=== PATIENT | female | born 1940 | race Caucasian/White ===

== ENCOUNTER 2021-06-05 19:08 | Observation (INO) | payer MEDICARE, BC ==
[2021-06-05] MEDS ORDERED: Sodium Chloride 0.9% 2.5 ML Syringe FLUSH PRN (19:15)
[2021-06-05] MEDS ORDERED: Sodium Chloride 0.9% 10 ML Syringe FLUSH PRN (19:15)
--- NOTE | 2021-06-05 19:23 | EDM.PDOC ---
ED HPI GENERAL MEDICAL PROBLEM - General Chief Complaint: General Stated Complaint: FALL YESTERDAY Time Seen by Provider: 06/05/21 19:14 - History of Present Illness INITIAL COMMENTS - FREE TEXT/NARRATIVE: 80-year-old female with a history of hypertension which she intermittently takes medication for depending on what her blood pressure is and possible history of CHF she is unsure sounds like a prior history of GA as well is presenting with generalized weakness and a fall. Patient states that she went shopping 5 days ago. She was very tired after that and so is been essentially laying in bed for the last 4 days. She states that 10 years ago she had a internet e commerce specialist tell her that "when I am tired I should just go to bed." She has been occasionally up to the bathroom but is otherwise been bedbound for the last 4 days. Approximately 24 hours ago she fell forward while trying to move from her bed to the bathroom. She was then too weak to get up. She did strike her head but she did not lose consciousness. She crawled into the living room but was unable to get up onto the futon so slipped on the floor. Today she called EMS who brought her into the ER. She denies headache or neck pain she denies chest pain or shortness of breath either now or within the last 4 days. No fevers or chills no myalgias some nausea and dry heaves but no vomiting patient states that she has not had anything to eat or drink for the last few days. She denies dysuria or hematuria. Her generalized weakness is constant gradually progressive and moderate to severe without alleviating factors radiation or other associated symptoms. - Related Data Allergies Allergy/AdvReac Type Severity Reaction Status Date / Time Sulfa (Sulfonamide Allergy Rash Verified 06/05/21 19:17 Antibiotics) Home Meds: Home Meds Furosemide [Lasix] 20 mg PO DAILY 06/05/21 [History] Losartan [Cozaar] 50 mg PO DAILY 06/05/21 [History] ED ROS GENERAL - Review of Systems Review Of Systems: See Below Free Text/Narrative/Comment: General: Per HPI Skin: No rash. Eyes: No vision problems. ENT: No sore throat. Neck: No neck stiffness. Respiratory: No shortness of breath. Cardiac: No chest pain. Gastrointestinal: No nausea, vomiting or abdominal pain. Urinary: No dysuria. Musculoskeletal: No myalgias/arthralgias. Neurologic: No headache. ED EXAM, GENERAL - Physical Exam Exam: See Below Free Text/Narrative:: General Appearance: No acute distress, appears comfortable HEENT: Normocephalic, 2 cm by half a centimeter abrasion to the mid forehead no underlying crepitus tenderness or deformity, sclera anicteric, mucous membranes moist Neck: Normal range of motion Chest and Lungs: Bilateral breath sounds, clear to auscultation Cardiovascular: Regular rate and rhythm, no lower extremity edema Abdomen: Soft, non-tender Musculoskeletal: 2+ left radial pulse no focal tenderness swelling or deformity left wrist with left shoulder significant ecchymosis surrounds the left elbow but no clinical joint effusion and range of motion of the joint is full and without pain she does have some focal tenderness at the radial head Neurologic: Awake, alert, no obvious deficits, moving all extremities Psychiatric: Appropriate, cooperative #1 Interpretation EKG Date: 06/05/21 Time: 20:05 EKG Interpretation Comments: Sinus rhythm rate of 88 Q waves anteriorly suggest old infarct no acute ischemia unremarkable intervals Course - Vital Signs Last Recorded V/S: Last Vital Signs Temp 97.5 F 06/05/21 20:43 Pulse 92 06/05/21 20:43 Resp 18 06/05/21 20:43 BP 134/67 06/05/21 20:43 Pulse Ox 97 06/05/21 20:43 - Orders/Labs/Meds Orders: Active Orders 24 hr Category Date Time Status INFLUENZA A+B AG SCREEN [RM] Stat Lab 06/05/21 19:50 Ordered Magnesium Sulfate/Water [Magnesium Sulfate in Water 4 Med 06/05/21 20:30 Active GM/100 ML] 4 gm Premix Bag 1 bag IV ONETIME Sodium Chloride 0.9% [Normal Saline] 1,000 ml Med 06/05/21 20:30 Active IV ASDIRECTED Sodium Chloride 0.9% [Saline Flush] Med 06/05/21 19:15 Active 10 ml FLUSH ASDIRECTED PRN Sodium Chloride 0.9% [Saline Flush] Med 06/05/21 19:15 Active 2.5 ml FLUSH ASDIRECTED PRN Isolation [COMM] Routine Oth 06/05/21 19:16 Active Saline Lock Insert [OM.PC] Stat Oth 06/05/21 19:15 Ordered Medication Orders Magnesium Sulfate 4 gm/ Premix 100 mls @ 50 mls/hr IV ONETIME ONE Stop: 06/05/21 22:29 Last Admin: 06/05/21 20:36 Dose: 50 mls/hr Documented by: NANCY Sodium Chloride (Normal Saline) 1,000 mls @ 999 mls/hr IV ASDIRECTED PIERRE Last Admin: 06/05/21 20:36 Dose: 999 mls/hr Documented by: NANCY Sodium Chloride (Sodium Chloride 0.9% 10 Ml Syringe) 10 ml FLUSH ASDIRECTED PRN PRN Reason: Keep Vein Open Sodium Chloride (Sodium Chloride 0.9% 2.5 Ml Syringe) 2.5 ml FLUSH ASDIRECTED PRN PRN Reason: Keep Vein Open Labs: Laboratory Tests 06/05/21 06/05/21 06/05/21 Range/Units 19:30 19:30 19:30 WBC 7.06 (4.0-11.0) K/uL RBC 3.76 L (4.30-5.90) M/uL Hgb 13.5 (12.0-16.0) g/dL Hct 38.3 (36.0-46.0) % MCV 101.9 H (80.0-98.0) fL MCH 35.9 H (27.0-32.0) pg MCHC 35.2 (31.0-37.0) g/dL RDW Std Deviation 52.9 (28.0-62.0) fl RDW Coeff of Reza 14 (11.0-15.0) % Plt Count 171 (150-400) K/uL MPV 9.50 (7.40-12.00) fL Neut % (Auto) 86.3 H (48.0-80.0) % Lymph % (Auto) 4.0 L (16.0-40.0) % [place] % (Auto) 9.3 (0.0-15.0) % Eos % (Auto) 0.1 (0.0-7.0) % Baso % (Auto) 0.3 (0.0-1.5) % Neut # (Auto) 6.1 H (1.4-5.7) K/uL Lymph # (Auto) 0.3 L (0.6-2.4) K/uL [place] # (Auto) 0.7 (0.0-0.8) K/uL Eos # (Auto) 0.0 (0.0-0.7) K/uL Baso # (Auto) 0.0 (0.0-0.1) K/uL Nucleated RBC % 0.0 /100WBC Nucleated RBCs # 0 K/uL INR Sodium 135 L (136-145) mmol/L Potassium 3.9 (3.5-5.1) mmol/L Chloride 96 L (98-107) mmol/L Carbon Dioxide 26.1 (21.0-32.0) mmol/L BUN 10 (7.0-18.0) mg/dL Creatinine 0.9 (0.6-1.0) mg/dL Est Cr Clr Drug Dosing 43.77 mL/min Estimated GFR (MDRD) > 60.0 ml/min Glucose 132 H (74-106) mg/dL Calcium 8.8 (8.5-10.1) mg/dL Magnesium 1.5 L (1.8-2.4) mg/dL Total Bilirubin 1.3 H (0.2-1.0) mg/dL AST 74 H (15-37) IU/L ALT 43 (14-63) IU/L Alkaline Phosphatase 144 H (46-116) U/L Creatine Kinase 126 (26-308) U/L Troponin I < 0.050 (0.000-0.056) ng/mL B-Natriuretic Peptide (<100) PG/ML Total Protein 7.9 (6.4-8.2) g/dL Albumin 3.4 (3.4-5.0) g/dL Globulin 4.5 H (2.6-4.0) g/dL Albumin/Globulin Ratio 0.8 L (0.9-1.6) TSH, Ultra Sensitive 3.19 (0.36-3.74) uIU/mL Urine Color Urine Appearance Urine pH (5.0-8.0) Ur Specific [place] (1.001-1.035) Urine Protein (NEGATIVE) mg/dL Urine Glucose (UA) (NEGATIVE) mg/dL Urine Ketones (NEGATIVE) mg/dL Urine Occult Blood (NEGATIVE) Urine Nitrite (NEGATIVE) Urine Bilirubin (NEGATIVE) Urine Urobilinogen (<2.0) EU/dL Ur Leukocyte Esterase (NEGATIVE) Urine RBC (0-2/HPF) Urine WBC (0-5/HPF) Ur Epithelial Cells (NONE-FEW) Urine Bacteria (NEGATIVE) Influenza Type A RNA NEGATIVE (NEGATIVE) Influenza Type B RNA NEGATIVE (NEGATIVE) SARS-CoV-2 RNA ([place]) NEGATIVE (NEGATIVE) 06/05/21 06/05/21 06/05/21 Range/Units 19:30 19:30 19:45 WBC (4.0-11.0) K/uL RBC (4.30-5.90) M/uL Hgb (12.0-16.0) g/dL Hct (36.0-46.0) % MCV (80.0-98.0) fL MCH (27.0-32.0) pg MCHC (31.0-37.0) g/dL RDW Std Deviation (28.0-62.0) fl RDW Coeff of Reza (11.0-15.0) % Plt Count (150-400) K/uL MPV (7.40-12.00) fL Neut % (Auto) (48.0-80.0) % Lymph % (Auto) (16.0-40.0) % [place] % (Auto) (0.0-15.0) % Eos % (Auto) (0.0-7.0) % Baso % (Auto) (0.0-1.5) % Neut # (Auto) (1.4-5.7) K/uL Lymph # (Auto) (0.6-2.4) K/uL [place] # (Auto) (0.0-0.8) K/uL Eos # (Auto) (0.0-0.7) K/uL Baso # (Auto) (0.0-0.1) K/uL Nucleated RBC % /100WBC Nucleated RBCs # K/uL INR 1.00 Sodium (136-145) mmol/L Potassium (3.5-5.1) mmol/L Chloride (98-107) mmol/L Carbon Dioxide (21.0-32.0) mmol/L BUN (7.0-18.0) mg/dL Creatinine (0.6-1.0) mg/dL Est Cr Clr Drug Dosing mL/min Estimated GFR (MDRD) ml/min Glucose (74-106) mg/dL Calcium (8.5-10.1) mg/dL Magnesium (1.8-2.4) mg/dL Total Bilirubin (0.2-1.0) mg/dL AST (15-37) IU/L ALT (14-63) IU/L Alkaline Phosphatase (46-116) U/L Creatine Kinase (26-308) U/L Troponin I (0.000-0.056) ng/mL B-Natriuretic Peptide 175 H (<100) PG/ML Total Protein (6.4-8.2) g/dL Albumin (3.4-5.0) g/dL Globulin (2.6-4.0) g/dL Albumin/Globulin Ratio (0.9-1.6) TSH, Ultra Sensitive (0.36-3.74) uIU/mL Urine Color YELLOW Urine Appearance CLEAR Urine pH 7.0 (5.0-8.0) Ur Specific [place] 1.015 (1.001-1.035) Urine Protein NEGATIVE (NEGATIVE) mg/dL Urine Glucose (UA) NEGATIVE (NEGATIVE) mg/dL Urine Ketones 15 H (NEGATIVE) mg/dL Urine Occult Blood TRACE-INTACT H (NEGATIVE) Urine Nitrite NEGATIVE (NEGATIVE) Urine Bilirubin NEGATIVE (NEGATIVE) Urine Urobilinogen 1.0 (<2.0) EU/dL Ur Leukocyte Esterase NEGATIVE (NEGATIVE) Urine RBC 0-2 (0-2/HPF) Urine WBC 0-1 (0-5/HPF) Ur Epithelial Cells OCCASIONAL (NONE-FEW) Urine Bacteria NOT SEEN (NEGATIVE) Influenza Type A RNA (NEGATIVE) Influenza Type B RNA (NEGATIVE) SARS-CoV-2 RNA ([place]) (NEGATIVE) Meds: Medications Generic Name Dose Route Start Last Admin Trade Name Freq PRN Reason Stop Dose Admin Magnesium Sulfate 4 gm/ Premix 100 mls @ 50 mls/hr 06/05/21 20:30 06/05/21 20:36 IV 06/05/21 22:29 50 mls/hr ONETIME ONE Administration Sodium Chloride 1,000 mls @ 999 mls/hr 06/05/21 20:30 06/05/21 20:36 Normal Saline IV 999 mls/hr ASDIRECTED PIERRE Administration Sodium Chloride 10 ml 06/05/21 19:15 Sodium Chloride 0.9% 10 Ml Syringe FLUSH ASDIRECTED PRN Keep Vein Open Sodium Chloride 2.5 ml 06/05/21 19:15 Sodium Chloride 0.9% 2.5 Ml Syringe FLUSH ASDIRECTED PRN Keep Vein Open Departure - Departure Time of Disposition: 20:56 Disposition: Refer to Observation Condition: Fair Clinical Impression: Hypomagnesemia, Hyponatremia, Generalized weakness - Discharge Information *PRESCRIPTION DRUG MONITORING PROGRAM REVIEWED*: Not Applicable *COPY OF PRESCRIPTION DRUG MONITORING REPORT IN PATIENT ADILENE: Not Applicable Forms: ED Department Discharge Sepsis Event Note (ED) - Focused Exam Vital Signs: Vital Signs Temp Pulse Resp BP Pulse Ox 06/05/21 20:43 97.5 F 92 18 134/67 97 06/05/21 19:11 97.2 F 101 H 20 169/109 H 97 - My Orders Last 24 Hours: My Active Orders 06/05/21 19:15 Sodium Chloride 0.9% [Saline Flush] 10 ml FLUSH ASDIRECTED PRN Sodium Chloride 0.9% [Saline Flush] 2.5 ml FLUSH ASDIRECTED PRN Saline Lock Insert [OM.PC] Stat 06/05/21 19:16 Isolation [COMM] Routine 06/05/21 19:50 INFLUENZA A+B AG SCREEN [RM] Stat 06/05/21 20:30 Magnesium Sulfate/Water [Magnesium Sulfate in Water 4 GM/100 ML] 4 gm Premix Bag 1 bag IV ONETIME Sodium Chloride 0.9% [Normal Saline] 1,000 ml IV ASDIRECTED - Assessment/Plan Last 24 Hours: My Active Orders 06/05/21 19:15 Sodium Chloride 0.9% [Saline Flush] 10 ml FLUSH ASDIRECTED PRN Sodium Chloride 0.9% [Saline Flush] 2.5 ml FLUSH ASDIRECTED PRN Saline Lock Insert [OM.PC] Stat 06/05/21 19:16 Isolation [COMM] Routine 06/05/21 19:50 INFLUENZA A+B AG SCREEN [RM] Stat 06/05/21 20:30 Magnesium Sulfate/Water [Magnesium Sulfate in Water 4 GM/100 ML] 4 gm Premix Bag 1 bag IV ONETIME Sodium Chloride 0.9% [Normal Saline] 1,000 ml IV ASDIRECTED Assessment:: 80-year-old female presenting with profound weakness and a fall approximately 24 hours ago. From a traumatic standpoint she does have an abrasion to her forehead. She has no headache she has no change in mental status it does not appear that she is on blood thinners. Patient adamantly refuses head CT and at this point I do not see a reason to force the issue. She has significant ecchymosis to the left elbow no clear focal bony tenderness but x-ray pending. There are no findings of compartment syndrome. From a medical standpoint she has profound generalized weakness and multiple etiologies need to to be considered. Infection to be considered Covid influenza swabs have been ordered urinalysis as well as chest x-ray. Her abdominal exam is benign and she has no findings of meningitis or encephalitis electrolyte derangement is certainly a consideration and CMP is pending. As well as magnesium. Cardiac causes need to be considered as well EKG and troponin pending ACS felt unlikely to present this way but is possible. 2054: Patient's labs are notable for significant dehydration with hyponatremia as well as hypomagnesemia I think both of these are contributing to her generalized weakness. Her troponin is normal her chest x-ray shows no pneumonia or signs of decompensated CHF urinalysis is without findings of UTI and chemistries and CBC are otherwise relatively unremarkable. Patient remains unable to stand without 2 person assist given this and her electrolyte abnormalities patient discussed with Dr. Champion and we will admit for observation and electrolyte repletion and reassessment.
[2021-06-05 20:04] LABS: BLOOD UREA NITROGEN,BUN 10 mg/dL (7.0-18.0); CARBON DIOXIDE,CO2 26.1 mmol/L (21.0-32.0); CHLORIDE,CL 96 mmol/L (98-107); GLUCOSE RANDOM 132 mg/dL (74-106); POTASSIUM,K 3.9 mmol/L (3.5-5.1); SODIUM,NA 135 mmol/L (136-145)
--- NOTE | 2021-06-05 20:28 | CR ---
Indication: Pain after fall Technique: Two views left elbow Comparison: None Findings: Bones: Alignment is normal. No fractures or bone lesions. Joint spaces: Unremarkable. Soft tissues: Unremarkable. Impression: Negative. Dictated by Sherry Evangelista MD @ 06/05/2021 8:27:09 PM (Electronically Signed)
--- NOTE | 2021-06-05 20:28 | CR ---
Indication: Pain after fall Technique: Chest one view Comparison: None Findings/Impression: Cardiovascular and mediastinum: Heart size and vasculature are normal in caliber and appearance. Mediastinum is within normal limits. Lungs and pleural spaces: Lungs are clear. No sign of infiltrate or mass. No sign of pleural effusion. No pneumothorax. Bones and soft tissues: No significant findings. Dictated by Sherry Evangelista MD @ 06/05/2021 8:26:03 PM (Electronically Signed)
[2021-06-05] MEDS ORDERED: Sodium Chloride 0.9% 1,000 ML IV SCH (20:30)
[2021-06-05] MEDS ORDERED: Magnesium Sulfate/Water 4 GM in Premix Bag 1 BAG IV ONE (20:30)
[2021-06-05 20:32] LABS: CORONAVIRUS COVID-19 NAA NEGATIVE (NEGATIVE); INFLUENZA A NAA NEGATIVE (NEGATIVE); INFLUENZA B NAA NEGATIVE (NEGATIVE)
--- NOTE | 2021-06-05 23:56 | PCM.HP.2 ---
H&P History of Present Illness - General Date of Service: 06/06/21 Admit Problem/Dx: Admission Diagnosis/Problem Admission Diagnosis/Problem Dehydration - History of Present Illness Initial Comments - Free Text/Narative: 80 yo female presents to the ED after a fall. She had fallen last night and was unable to get up off her couch for most of the day. Patient reports generalized weakness and fatigue. She walks with a walker. When she fell yesterday she landed on her left arm. She has fallen at home multiple times. She denies ever losing consciousness. Chest and elbow x-ray were unremarkable. Lab work was unrevealing. Patient reports a history of labile blood pressure at home.Patient reports she takes losartan only when needed for her blood pressure and lasix sparingly for leg edema. She refused CT scan of her head. - Related Data Allergies/Adverse Reactions: Allergies Allergy/AdvReac Type Severity Reaction Status Date / Time Sulfa (Sulfonamide Allergy Rash Verified 06/05/21 23:25 Antibiotics) Home Medications: Home Meds Furosemide [Lasix] 20 mg PO DAILY PRN 06/05/21 [History] Losartan [Cozaar] 50 mg PO DAILY 06/05/21 [History] Past Medical History HEENT History: Reports: None Cardiovascular History: Reports: [place] Respiratory History: Reports: None Gastrointestinal History: Reports: None Genitourinary History: Reports: None MONOGRAM AND LETTER PASTER History: Reports: None Musculoskeletal History: Reports: None Neurological History: Reports: None Psychiatric History: Reports: None Endocrine/Metabolic History: Reports: None Immunologic History: Reports: None Oncologic (Cancer) History: Reports: None Dermatologic History: Reports: None - Infectious Disease History Infectious Disease History: Reports: Chicken Pox Social & Family History - Family History Family Medical History: No Pertinent Family History - Tobacco Use Tobacco Use Status *Q: Never Tobacco User - Recreational Drug Use Recreational Drug Use: No H&P Review of Systems - Review of Systems: Review Of Systems: Comprehensive ROS is negative, except as noted in HPI. Exam - Exam Exam: See Below - Vital Signs Vital Signs: Last Vital Signs Temp 36.6 C 06/05/21 23:30 Pulse 84 06/05/21 23:30 Resp 18 06/05/21 23:30 BP 187/86 H 06/05/21 23:30 Pulse Ox 98 10/23/21 23:30 Weight: 90.718 kg - Exam General: Alert, Oriented HEENT: Mucosa Moist & [place] Neck: Supple Lungs: Clear to Auscultation, Normal Respiratory Effort Cardiovascular: Regular Rate, Regular Rhythm GI/Abdominal Exam: Normal Bowel Sounds, Soft, Non-Tender Extremities: Non-Tender, No Pedal Edema Skin: Warm, Dry, Intact Neurological: Cranial Nerves Intact - Patient Data Lab Results Last 24 hrs: Laboratory Results - last 24 hr 06/05/21 06/05/21 06/05/21 Range/Units 19:30 19:30 19:30 WBC 7.06 (4.0-11.0) K/uL RBC 3.76 L (4.30-5.90) M/uL Hgb 13.5 (12.0-16.0) g/dL Hct 38.3 (36.0-46.0) % MCV 101.9 H (80.0-98.0) fL MCH 35.9 H (27.0-32.0) pg MCHC 35.2 (31.0-37.0) g/dL RDW Std Deviation 52.9 (28.0-62.0) fl RDW Coeff of Reza 14 (11.0-15.0) % Plt Count 171 (150-400) K/uL MPV 9.50 (7.40-12.00) fL Neut % (Auto) 86.3 H (48.0-80.0) % Lymph % (Auto) 4.0 L (16.0-40.0) % [place] % (Auto) 9.3 (0.0-15.0) % Eos % (Auto) 0.1 (0.0-7.0) % Baso % (Auto) 0.3 (0.0-1.5) % Neut # (Auto) 6.1 H (1.4-5.7) K/uL Lymph # (Auto) 0.3 L (0.6-2.4) K/uL [place] # (Auto) 0.7 (0.0-0.8) K/uL Eos # (Auto) 0.0 (0.0-0.7) K/uL Baso # (Auto) 0.0 (0.0-0.1) K/uL Nucleated RBC % 0.0 /100WBC Nucleated RBCs # 0 K/uL INR Sodium 135 L (136-145) mmol/L Potassium 3.9 (3.5-5.1) mmol/L Chloride 96 L (98-107) mmol/L Carbon Dioxide 26.1 (21.0-32.0) mmol/L BUN 10 (7.0-18.0) mg/dL Creatinine 0.9 (0.6-1.0) mg/dL Est Cr Clr Drug Dosing 43.77 mL/min Estimated GFR (MDRD) > 60.0 ml/min Glucose 132 H (74-106) mg/dL Calcium 8.8 (8.5-10.1) mg/dL Magnesium 1.5 L (1.8-2.4) mg/dL Total Bilirubin 1.3 H (0.2-1.0) mg/dL AST 74 H (15-37) IU/L ALT 43 (14-63) IU/L Alkaline Phosphatase 144 H (46-116) U/L Creatine Kinase 126 (26-308) U/L Troponin I < 0.050 (0.000-0.056) ng/mL B-Natriuretic Peptide (<100) PG/ML Total Protein 7.9 (6.4-8.2) g/dL Albumin 3.4 (3.4-5.0) g/dL Globulin 4.5 H (2.6-4.0) g/dL Albumin/Globulin Ratio 0.8 L (0.9-1.6) TSH, Ultra Sensitive 3.19 (0.36-3.74) uIU/mL Urine Color Urine Appearance Urine pH (5.0-8.0) Ur Specific [place] (1.001-1.035) Urine Protein (NEGATIVE) mg/dL Urine Glucose (UA) (NEGATIVE) mg/dL Urine Ketones (NEGATIVE) mg/dL Urine Occult Blood (NEGATIVE) Urine Nitrite (NEGATIVE) Urine Bilirubin (NEGATIVE) Urine Urobilinogen (<2.0) EU/dL Ur Leukocyte Esterase (NEGATIVE) Urine RBC (0-2/HPF) Urine WBC (0-5/HPF) Ur Epithelial Cells (NONE-FEW) Urine Bacteria (NEGATIVE) Influenza Type A RNA NEGATIVE (NEGATIVE) Influenza Type B RNA NEGATIVE (NEGATIVE) SARS-CoV-2 RNA ([place]) NEGATIVE (NEGATIVE) 06/05/21 06/05/21 06/05/21 Range/Units 19:30 19:30 19:45 WBC (4.0-11.0) K/uL RBC (4.30-5.90) M/uL Hgb (12.0-16.0) g/dL Hct (36.0-46.0) % MCV (80.0-98.0) fL MCH (27.0-32.0) pg MCHC (31.0-37.0) g/dL RDW Std Deviation (28.0-62.0) fl RDW Coeff of Reza (11.0-15.0) % Plt Count (150-400) K/uL MPV (7.40-12.00) fL Neut % (Auto) (48.0-80.0) % Lymph % (Auto) (16.0-40.0) % [place] % (Auto) (0.0-15.0) % Eos % (Auto) (0.0-7.0) % Baso % (Auto) (0.0-1.5) % Neut # (Auto) (1.4-5.7) K/uL Lymph # (Auto) (0.6-2.4) K/uL [place] # (Auto) (0.0-0.8) K/uL Eos # (Auto) (0.0-0.7) K/uL Baso # (Auto) (0.0-0.1) K/uL Nucleated RBC % /100WBC Nucleated RBCs # K/uL INR 1.00 Sodium (136-145) mmol/L Potassium (3.5-5.1) mmol/L Chloride (98-107) mmol/L Carbon Dioxide (21.0-32.0) mmol/L BUN (7.0-18.0) mg/dL Creatinine (0.6-1.0) mg/dL Est Cr Clr Drug Dosing mL/min Estimated GFR (MDRD) ml/min Glucose (74-106) mg/dL Calcium (8.5-10.1) mg/dL Magnesium (1.8-2.4) mg/dL Total Bilirubin (0.2-1.0) mg/dL AST (15-37) IU/L ALT (14-63) IU/L Alkaline Phosphatase (46-116) U/L Creatine Kinase (26-308) U/L Troponin I (0.000-0.056) ng/mL B-Natriuretic Peptide 175 H (<100) PG/ML Total Protein (6.4-8.2) g/dL Albumin (3.4-5.0) g/dL Globulin (2.6-4.0) g/dL Albumin/Globulin Ratio (0.9-1.6) TSH, Ultra Sensitive (0.36-3.74) uIU/mL Urine Color YELLOW Urine Appearance CLEAR Urine pH 7.0 (5.0-8.0) Ur Specific [place] 1.015 (1.001-1.035) Urine Protein NEGATIVE (NEGATIVE) mg/dL Urine Glucose (UA) NEGATIVE (NEGATIVE) mg/dL Urine Ketones 15 H (NEGATIVE) mg/dL Urine Occult Blood TRACE-INTACT H (NEGATIVE) Urine Nitrite NEGATIVE (NEGATIVE) Urine Bilirubin NEGATIVE (NEGATIVE) Urine Urobilinogen 1.0 (<2.0) EU/dL Ur Leukocyte Esterase NEGATIVE (NEGATIVE) Urine RBC 0-2 (0-2/HPF) Urine WBC 0-1 (0-5/HPF) Ur Epithelial Cells OCCASIONAL (NONE-FEW) Urine Bacteria NOT SEEN (NEGATIVE) Influenza Type A RNA (NEGATIVE) Influenza Type B RNA (NEGATIVE) SARS-CoV-2 RNA ([place]) (NEGATIVE) Result Diagrams: 06/06/21 06:20 06/06/21 06:20 Sepsis Event Note - Focused Exam Vital Signs: Vital Signs Temp Pulse Resp BP Pulse Ox 06/05/21 23:30 36.6 C 84 18 187/86 H 98 06/05/21 20:43 36.4 C 92 18 134/67 97 06/05/21 19:11 36.2 C 101 H 20 169/109 H 97 - Problem List (1) Generalized weakness SNOMED Code(s): 78980230 ICD Code: R53.1 - WEAKNESS Status: Acute Current Visit: No Problem List Initiated/Reviewed/Updated: Yes Orders Last 24hrs: Active Orders 24 hr Category Date Time Status Patient Status [ADT] Routine ADT 06/05/21 20:57 Active Antiembolic Devices [RC] PER UNIT ROUTINE Care 06/05/21 23:55 Ordered Cardiac Monitoring [RC] CONTINUOUS Care 06/05/21 23:55 Ordered Oxygen Therapy [RC] PRN Care 06/05/21 23:54 Ordered VTE/DVT Education [RC] PER UNIT ROUTINE Care 06/05/21 23:54 Ordered Vital Signs [RC] Q4H Care 06/05/21 23:54 Ordered Regular Diet [DIET] Diet 06/05/21 Breakfast Ordered BASIC METABOLIC PANEL,BMP [CHEM] AM Lab 06/06/21 05:11 Ordered CBC WITH AUTO DIFF [HEME] AM Lab 06/06/21 05:11 Ordered INFLUENZA A+B AG SCREEN [RM] Stat Lab 06/05/21 19:50 Ordered MAGNESIUM [CHEM] AM Lab 06/06/21 05:11 Ordered Losartan [Cozaar] Med 06/06/21 09:00 Ordered 50 mg PO DAILY Sodium Chloride 0.9% [Normal Saline] 1,000 ml Med 06/05/21 20:30 Active IV ASDIRECTED Sodium Chloride 0.9% [Saline Flush] Med 06/05/21 19:15 Active 10 ml FLUSH ASDIRECTED PRN Sodium Chloride 0.9% [Saline Flush] Med 06/05/21 19:15 Active 2.5 ml FLUSH ASDIRECTED PRN Isolation [COMM] Routine Oth 06/05/21 19:16 Active Saline Lock Insert [OM.PC] Stat Oth 06/05/21 19:15 Ordered Sequential Compression Device [OM.PC] Per Unit Routine Oth 06/05/21 23:54 Ordered Resuscitation Status Routine Resus Stat 06/05/21 23:54 Ordered Medication Orders Sodium Chloride (Normal Saline) 1,000 mls @ 999 mls/hr IV ASDIRECTED PIERRE Last Admin: 06/05/21 20:36 Dose: 999 mls/hr Documented by: NANCY Sodium Chloride (Sodium Chloride 0.9% 10 Ml Syringe) 10 ml FLUSH ASDIRECTED PRN PRN Reason: Keep Vein Open Sodium Chloride (Sodium Chloride 0.9% 2.5 Ml Syringe) 2.5 ml FLUSH ASDIRECTED PRN PRN Reason: Keep Vein Open Assessment/Plan Comment:: Patient was monitored overnight with no events on telemetry. She feels much stronger today and is requesting discharge home. Patient was discharged home to have follow up with [facility].
[2021-06-06 07:16] LABS: CARBON DIOXIDE,CO2 25.8 mmol/L (21.0-32.0); POTASSIUM,K 3.8 mmol/L (3.5-5.1)
[2021-06-06] MEDS ORDERED: Losartan 50 MG Tab PO SCH (09:00)
== END 2021-06-06 12:00 | disposition home or self-care (01) ==
LOC: MW.ED 19:08 → MW.MS 21:18
PROVIDERS: ADMIT Internal Medicine; ATTEND Internal Medicine
DX: R53.1 Weakness (principal); I10 Essential (primary) hypertension; I25.2 Old myocardial infarction; Z20.822 Contact with and (suspected) exposure to COVID-19; Z88.2 Allergy status to sulfonamides; Z79.899 Other long term (current) drug therapy; W19.XXXA Unspecified fall, initial encounter
CPT/HCPCS: 0240U; 36415; 71045; 73070; 80048; 80053; 81001; 82550; 83735; 83880; 84443; 84484; 85025; 85610; 93005; 96365; 96366; 99285; A9270; G0378; J3475; J7030